=== PATIENT | female | born 1950 | race Caucasian/White ===

== ENCOUNTER → 2016-06-25 | Outpatient (REF) | payer MEDICARE ==
[~2016-06-25] MED LIST: ALPR0.5T3 PO; ATOR1TAB21 PO; ENSU1LIQ PO; FISH1000 PO; IBUP600T26 PO; LORT5TAB PO; PANT40TA2 PO; PROP40TA PO; TYLE1TAB5 AD; VITA200016 PO
== END ==
LOC: M LAB REF 12:30
PROVIDERS: ATTEND Internal Medicine Medical Oncology
DX: C18.9 Malignant neoplasm of colon, unspecified (principal)

== ENCOUNTER → 2016-07-02 | Outpatient (CLI) | payer MEDICARE ==
[~2016-07-02] MED LIST changes: +GASTROGRAFIN SOLUTION 30ML (Q9963) As Ordered ONE; +ISOVUE-370 76% 100ML VIAL (Q9967) As Ordered ONE
--- NOTE | 2016-07-02 16:33 | REP ---
CT of the abdomen and pelvis for colon carcinoma. A comparison is 05/21/2015. Scanning is initially performed through the liver without IV contrast. This is followed by IV contrast enhanced scanning from the diaphragms to the pubic symphysis. Bowel contrast is used on both phases of the study. The visualized lower lung pradhan demonstrate minor discoid atelectasis versus scarring in the deep posterior sulci bilaterally, unchanged. The hepatic parenchyma is homogeneous on both phases of the study. No hepatic metastases are identified. The gallbladder, pancreas and spleen are unremarkable and unchanged. The adrenals and kidneys are unremarkable and unchanged. Abdominal aorta is unremarkable. There are occasional periaortic and normal size retroperitoneal nodes, not significantly changed. There is no bowel distension. There is an enterocolostomy in the ascending colon as previously. No nodularity or masses are identified along the suture line. There is no mesenteric adenopathy or ascites. Pelvis: The the patient has a hysterectomy. Vaginal cuff and adnexa are unremarkable. The bladder is unremarkable. There is diverticulosis without diverticulitis of the descending colon and sigmoid colon. There are no lytic, blastic or destructive skeletal changes. There is degenerative disc disease at L5 S1, unchanged. Impression: There is no evidence of adenopathy, ascites, metastatic disease. No change from the prior study. There is descending colon diverticulosis without diverticulitis. Signed by Huy Garcia MD 07/02/2016 04:25 P
== END ==
LOC: M RAD 12:38
PROVIDERS: ATTEND Internal Medicine Medical Oncology
DX: K57.30 Diverticulosis of large intestine without perforation or abscess without bleeding (principal); R10.30 Lower abdominal pain, unspecified; R11.0 Nausea
CPT/HCPCS: 74178; Q9963; Q9967

== ENCOUNTER → 2016-09-11 | Outpatient (CLI) | payer MEDICARE ==
[~2016-09-11] MED LIST changes: -GASTROGRAFIN SOLUTION 30ML (Q9963) As Ordered ONE; -ISOVUE-370 76% 100ML VIAL (Q9967) As Ordered ONE
--- NOTE | 2016-09-11 14:10 | REPMRS ---
Patient History The patient states she has not had a clinical breast exam in over a year. Patient is postmenopausal, has history of colorectal cancer at age 64, had previous chemotherapy at age 64, has history of other cancer at age 57, and is nulliparous. No known family history of cancer. Digital Woman Screen Mammo: September 11, 2016 - Exam #: [id number] Bilateral CC and MLO view(s) were taken. Technologist: Alexandria Fitch, Technologist Prior study comparison: September 05, 2015, digital woman screen mammo performed at [facility]. September 18, 2014, digital woman screen mammo performed at [facility]. FINDINGS: There are scattered fibroglandular densities. There has been no change in the appearance of the mammogram from the prior studies. There is a mild amount of residual fibroglandular tissue which is fairly symmetric. There is no interval development of dominant mass, architectural distortion, or clustered microcalcification suggestive of malignancy. ASSESSMENT: BI-RADS/ACR category 1 mammogram. Negative. Recommendation Routine screening mammogram in 1 year (for women over age 40). This mammogram was interpreted with the aid of an FDA-approved computer-aided dectection system. Electronically Signed By: Huy Yusuf MD 09/11/16 2503
== END ==
LOC: M WHC 12:54
PROVIDERS: ATTEND Family Medicine
DX: Z12.31 Encounter for screening mammogram for malignant neoplasm of breast (principal); Z78.0 Asymptomatic menopausal state

== ENCOUNTER → 2017-01-08 | Outpatient (REF) | payer MEDICARE ==
[~2017-01-08] MED LIST changes: +IBUP-1022 PO; -IBUP600T26 PO
== END ==
LOC: M LAB REF 12:24
PROVIDERS: ATTEND Internal Medicine Medical Oncology
DX: C18.0 Malignant neoplasm of cecum (principal)

== ENCOUNTER → 2017-02-11 | Outpatient (CLI) | payer MEDICARE ==
[2017-02-11 10:33] LABS: FREE T4 1.18 NG/DL (0.76-1.46)
== END ==
LOC: M WUC 08:26
PROVIDERS: ATTEND Family Medicine
DX: D75.89 Other specified diseases of blood and blood-forming organs (principal); E78.5 Hyperlipidemia, unspecified

== ENCOUNTER → 2017-03-03 | Outpatient (REF) | payer MEDICARE ==
[~2017-03-03] MED LIST changes: +LORA10CA PO
== END ==
LOC: M LAB REF 10:39
PROVIDERS: ATTEND Internal Medicine Gastroenterology
DX: R19.7 Diarrhea, unspecified (principal)

== ENCOUNTER 2017-03-06 09:24 | Day surgery (SDC) | payer MEDICARE ==
[~2017-03-06] VITALS: Ht 154.9 cm; Wt 53.5 kg
[2017-03-06] MEDS ORDERED: NS 1,000 ML IV ONE (10:15)
[2017-03-06] MEDS ORDERED: fentaNYL 100 MCG/2 ML INJECTION (J3010) As Ordered ONE (10:55)
[2017-03-06] MEDS ORDERED: PROPOFOL 200 MG/20 ML VIAL As Ordered ONE ×2 (10:57→12:20)
[2017-03-06] MEDS ORDERED: LIDOCAINE 2% INJ 100 MG/5 ML SDV (FOR ANES.) As Ordered ONE (10:57)
--- NOTE | 2017-03-06 12:43 | ROOR ---
Patient Name: Yarelis Douglas Procedure Date: 03/06/2017 11:23 AM Date of : 1950 Age: 67 Room: [facility] Gender: Female Note Status: Finalized Procedure: Colonoscopy Indications: High risk colon cancer surveillance: Personal history of colon cancer Providers: Saurav Soliman MD Referring MD: Yumiko Guthrie MD Requesting Provider: Medicines: Monitored Anesthesia Care Complications: No immediate complications. Procedure: Pre-Anesthesia Assessment: - Prior to the procedure, a History and Physical was performed, and patient medications and allergies were reviewed. The patient is competent. The risks and benefits of the procedure and the sedation options and risks were discussed with the patient. All questions were answered and informed consent was obtained. Patient identification and proposed procedure were verified by the physician, the nurse and the anesthesiologist in the procedure room. Mental Status Examination: alert and oriented. Airway Examination: normal oropharyngeal airway and neck mobility. Respiratory Examination: clear to auscultation. CV Examination: normal. Prophylactic Antibiotics: The patient does not require prophylactic antibiotics. Prior Anticoagulants: The patient has taken no previous anticoagulant or antiplatelet agents. ASA Grade Assessment: II - A patient with mild systemic disease. After reviewing the risks and benefits, the patient was deemed in satisfactory condition to undergo the procedure. The anesthesia plan was to use monitored anesthesia care (MAC). Immediately prior to administration of medications, the patient was re-assessed for adequacy to receive sedatives. The heart rate, respiratory rate, oxygen saturations, blood pressure, adequacy of pulmonary ventilation, and response to care were monitored throughout the procedure. The physical status of the patient was re-assessed after the procedure. The Colonoscope was introduced through the anus and advanced to the terminal ileum, with identification of the appendiceal orifice and IC valve. The colonoscopy was performed without difficulty. The patient tolerated the procedure well. The quality of the bowel preparation was adequate to identify polyps 6 mm and larger in size and fair. The terminal ileum, ileocecal valve, appendiceal orifice, and rectum were photographed. Scope insertion time was 6 minutes. Scope withdrawal time was 10 minutes. The total duration of the procedure was 18 minutes. Findings: The perianal and digital rectal examinations were normal. The kati-terminal ileum appeared normal. There was evidence of a prior functional end-to-end ileo-colonic anastomosis in the ascending colon. This was patent and was characterized by healthy appearing mucosa. The anastomosis was traversed. A 10 mm polyp was found in the descending colon. The polyp was sessile. The polyp was removed with a cold biopsy forceps. Resection and retrieval were complete. To close a defect after polypectomy, one hemostatic clip was successfully placed. There was no bleeding at the end of the procedure. Multiple small and large-mouthed diverticula were found in the sigmoid colon. There was narrowing of the colon in association with the diverticular opening. There was evidence of diverticular spasm. There was no evidence of diverticular bleeding. Non-bleeding external and internal hemorrhoids were found during retroflexion. The hemorrhoids were medium-sized. Impression: - Preparation of the colon was fair. - The examined portion of the ileum was normal. - Patent functional end-to-end ileo-colonic anastomosis, characterized by healthy appearing mucosa. - One 10 mm polyp in the descending colon, removed with a cold biopsy forceps. Resected and retrieved. Clip was placed. - Severe diverticulosis in the sigmoid colon. There was narrowing of the colon in association with the diverticular opening. There was evidence of diverticular spasm. There was no evidence of diverticular bleeding. - Non-bleeding external and internal hemorrhoids. Recommendation: - Patient has a contact number available for emergencies. The signs and symptoms of potential delayed complications were discussed with the patient. Return to normal activities tomorrow. Written discharge instructions were provided to the patient. - High fiber diet. - Continue present medications. - Await pathology results. - Repeat colonoscopy in 3 years for surveillance based on pathology results and for surveillance based on personal history of colon cancer. - Return to GI clinic as previously scheduled. Please call [phone] to make follow up appointment in 2 weeks, - Return to primary care physician. Saurav Soliman MD Saurav Soliman MD 03/06/2017 12:42:53 PM This report has been signed electronically. Number of Addenda: 0 Note Initiated On: 03/06/2017 11:23 AM Estimated Blood Loss: Estimated blood loss was minimal.
[2017-03-06 13:10] VITALS: BP 144/76
--- NOTE | 2017-03-06 13:27 | ROOR ---
Patient Name: Yarelis Douglas Procedure Date: 03/06/2017 11:22 AM Date of : 1950 Age: 67 Room: [facility] Gender: Female Note Status: Finalized Procedure: Upper GI endoscopy Indications: Functional Dyspepsia, Weight loss Providers: Saurav Soliman MD Referring MD: Yumiko Guthrie MD Requesting Provider: Medicines: Monitored Anesthesia Care Complications: No immediate complications. Procedure: Pre-Anesthesia Assessment: - Prior to the procedure, a History and Physical was performed, and patient medications and allergies were reviewed. The patient is competent. The risks and benefits of the procedure and the sedation options and risks were discussed with the patient. All questions were answered and informed consent was obtained. Patient identification and proposed procedure were verified by the physician, the nurse and the anesthesiologist in the procedure room. Mental Status Examination: alert and oriented. Airway Examination: normal oropharyngeal airway and neck mobility. Respiratory Examination: clear to auscultation. CV Examination: normal. Prophylactic Antibiotics: The patient does not require prophylactic antibiotics. Prior Anticoagulants: The patient has taken no previous anticoagulant or antiplatelet agents. ASA Grade Assessment: II - A patient with mild systemic disease. After reviewing the risks and benefits, the patient was deemed in satisfactory condition to undergo the procedure. The anesthesia plan was to use monitored anesthesia care (MAC). Immediately prior to administration of medications, the patient was re-assessed for adequacy to receive sedatives. The heart rate, respiratory rate, oxygen saturations, blood pressure, adequacy of pulmonary ventilation, and response to care were monitored throughout the procedure. The physical status of the patient was re-assessed after the procedure. The Endoscope was introduced through the mouth, and advanced to the second part of duodenum. The upper GI endoscopy was accomplished without difficulty. The patient tolerated the procedure well. Findings: The Z-line was irregular and was found 38 cm from the incisors. Two biopsies were obtained with cold forceps for histology in the middle third of the esophagus. Verification of patient identification for the specimen was done by the physician and nurse using the patient's name, date and medical record number. Estimated blood loss was minimal. Multiple dispersed, 7 mm non-bleeding erosions were found in the gastric antrum. There were no stigmata of recent bleeding. Biopsies were taken with a cold forceps for Helicobacter pylori testing. The duodenal bulb and second portion of the duodenum were normal. Biopsies for histology were taken with a cold forceps for evaluation of celiac disease. Impression: - Z-line irregular, 38 cm from the incisors. - Non-bleeding erosive gastropathy. Biopsied. - Normal duodenal bulb and second portion of the duodenum. Biopsied. - Biopsies performed in the middle third of the esophagus. Recommendation: - Patient has a contact number available for emergencies. The signs and symptoms of potential delayed complications were discussed with the patient. Return to normal activities tomorrow. Written discharge instructions were provided to the patient. - Resume previous diet. - Continue present medications. - Await pathology results. - Return to GI clinic as previously scheduled. Please call Gi clinic at for follow up appointment. - Return to primary care physician. Saurav Soliman MD Saurav Soliman MD 03/06/2017 1:27:34 PM This report has been signed electronically. Number of Addenda: 0 Note Initiated On: 03/06/2017 11:22 AM Estimated Blood Loss: Estimated blood loss was minimal.
== END 2017-03-06 13:39 | disposition home or self-care (01) ==
LOC: M OPP 09:24
PROVIDERS: ATTEND Internal Medicine Gastroenterology
DX: Z12.11 Encounter for screening for malignant neoplasm of colon (principal); Z85.038 Personal history of other malignant neoplasm of large intestine; D12.4 Benign neoplasm of descending colon; K57.30 Diverticulosis of large intestine without perforation or abscess without bleeding; Z98.0 Intestinal bypass and anastomosis status; K64.8 Other hemorrhoids; R63.4 Abnormal weight loss; K30 Functional dyspepsia; K31.89 Other diseases of stomach and duodenum; K22.8 Other specified diseases of esophagus; R10.9 Unspecified abdominal pain; R13.10 Dysphagia, unspecified; R19.4 Change in bowel habit; Z85.828 Personal history of other malignant neoplasm of skin; I10 Essential (primary) hypertension; E55.9 Vitamin D deficiency, unspecified; R00.9 Unspecified abnormalities of heart beat; K21.9 Gastro-esophageal reflux disease without esophagitis; F41.9 Anxiety disorder, unspecified; E78.00 Pure hypercholesterolemia, unspecified; Z79.899 Other long term (current) drug therapy; Z88.8 Allergy status to other drugs, medicaments and biological substances; Z88.0 Allergy status to penicillin
CPT/HCPCS: 43239; 45380; 88305; J3010

== ENCOUNTER → 2017-03-16 | Outpatient (CLI) | payer MEDICARE ==
[2017-03-16 13:25] LABS: CREATININE FOR GFR 1.05 MG/DL (0.55-1.02); GLOMERULAR FILTRATION RATE 55.8 (>45)
== END ==
LOC: M LAB 12:02
PROVIDERS: ATTEND Internal Medicine Gastroenterology
DX: R10.13 Epigastric pain (principal)

== ENCOUNTER → 2017-03-19 | Outpatient (CLI) | payer MEDICARE ==
[~2017-03-19] MED LIST changes: +GASTROGRAFIN SOLUTION 30ML (Q9963) As Ordered ONE; +ISOVUE-370 76% 100ML VIAL (Q9967) As Ordered ONE
--- NOTE | 2017-03-19 14:51 | REP ---
CT ABDOMEN PELVIS WITHOUT AND WITH IV CONTRAST: With oral contrast. HISTORY: Epigastric pain and weight loss. Pancreatic protocol. CT CONTRAST DOSE: 100 mL of Isovue 370 is given intravenously. Comparison CT study July [address] FINDINGS: Preliminary digital doctor of nursing practice radiograph is noncontributory. The lung bases show mild linear fibrosis bilaterally. There are granulomatous calcifications in the left base. The liver and the spleen are normal in size homogeneous in texture. There is a granulomatous calcification in the medial aspect of the spleen again noted. The gallbladder is unremarkable. No adrenal lesion is seen on either side. No pancreatic mass or cyst is seen. 2 mm pancreatic duct is observed, which is felt to be normal in size. There is a large air-filled duodenal diverticulum adjacent to the head of the pancreas arising from the duodenum at the junction of the second and third portion. There is no evidence of peripancreatic or retroperitoneal adenopathy. The kidneys enhance symmetrically and are morphologically intact. Small and large intestinal bowel loops are otherwise unremarkable. No abdominal wall defect is seen. There is left colonic diverticulosis without CT evidence of diverticulitis. Uterus is surgically absent. Urinary bladder is unremarkable. There are sutures medial to the cecum post appendectomy. IMPRESSION: No pancreatic lesions seen. Status post prior appendectomy. Large duodenal diverticulum noted incidentally. Signed by Gilles Crow MD 03/19/2017 04:01 P
== END ==
LOC: M RAD 11:56
PROVIDERS: ATTEND Internal Medicine Gastroenterology
DX: R10.13 Epigastric pain (principal)
CPT/HCPCS: 74178; Q9963; Q9967

== ENCOUNTER → 2017-07-09 | Outpatient (REF) | payer MEDICARE ==
[2017-07-10 08:50] LABS: CARCINOEMBRYONIC ANTIGEN 3.2 NG/ML (<2.5)
== END ==
LOC: M LAB REF 13:55
DX: C18.9 Malignant neoplasm of colon, unspecified (principal)
CPT/HCPCS: 82378

== ENCOUNTER → 2017-07-10 | Outpatient (CLI) | payer MEDICARE ==
[~2017-07-10] MED LIST changes: -ALPR0.5T3 PO; -ATOR1TAB21 PO; -ENSU1LIQ PO; -FISH1000 PO; -GASTROGRAFIN SOLUTION 30ML (Q9963) As Ordered ONE; -IBUP-1022 PO; +ISOVUE-370 76% 100ML VIAL (Q9967) As Ordered; -ISOVUE-370 76% 100ML VIAL (Q9967) As Ordered ONE; -LORA10CA PO; -LORT5TAB PO; -PANT40TA2 PO; -PROP40TA PO; -TYLE1TAB5 AD; -VITA200016 PO
== END ==
LOC: M RAD 12:47
DX: C18.9 Malignant neoplasm of colon, unspecified (principal); R07.89 Other chest pain
CPT/HCPCS: Q9967

== ENCOUNTER → 2017-07-13 | Outpatient (CLI) | payer MEDICARE ==
[~2017-07-13] MED LIST changes: -ISOVUE-370 76% 100ML VIAL (Q9967) As Ordered; +PROHANCE 279.3MG/ML 5ML VIAL (A9576) As Ordered
== END ==
LOC: M RAD 16:14
DX: R51 Headache (principal); Z85.038 Personal history of other malignant neoplasm of large intestine
CPT/HCPCS: A9576

== ENCOUNTER → 2017-09-14 | Outpatient (CLI) | payer MEDICARE | LOC: M WHC 08:38 | DX: Z12.31 Encounter for screening mammogram for malignant neoplasm of breast (principal) | CPT/HCPCS: 77067 ==

== ENCOUNTER → 2017-10-27 | Outpatient (REF) | payer MEDICARE ==
[2017-10-27 12:58] LABS: FERRITIN 10 NG/ML (8-252); IRON (FE) 66 UG/DL (50-170); PERCENT SATURATION 17.6 % (13.2-45.0); TOTAL IRON BINDING CAPACITY 374 UG/DL (250-450)
== END ==
LOC: M SFHCPLAZ 07:50
DX: G25.81 Restless legs syndrome (principal); R03.0 Elevated blood-pressure reading, without diagnosis of hypertension; F32.1 Major depressive disorder, single episode, moderate
CPT/HCPCS: 83550

== ENCOUNTER → 2018-01-11 | Outpatient (CLI) | payer MEDICARE | LOC: M PAIN 10:15 | DX: M47.812 Spondylosis without myelopathy or radiculopathy, cervical region (principal); M48.02 Spinal stenosis, cervical region; G43.909 Migraine, unspecified, not intractable, without status migrainosus; K21.9 Gastro-esophageal reflux disease without esophagitis; E78.00 Pure hypercholesterolemia, unspecified; F41.9 Anxiety disorder, unspecified; L71.9 Rosacea, unspecified; Z79.82 Long term (current) use of aspirin; Z79.899 Other long term (current) drug therapy; Z88.0 Allergy status to penicillin; Z88.8 Allergy status to other drugs, medicaments and biological substances; Z91.038 Other insect allergy status; Z86.79 Personal history of other diseases of the circulatory system; Z87.891 Personal history of nicotine dependence | CPT/HCPCS: G0463 ==

== ENCOUNTER → 2018-02-08 | Outpatient (CLI) | payer MEDICARE ==
[~2018-02-08] MED LIST changes: +BUPIVACAINE HCL 0.25% 30 ML VIAL As Ordered; +ISOVUE-M 300 61% 15ML VIAL (Q9967) As Ordered; +LIDOCAINE 1% SDV INJ 30 ML VIAL As Ordered; -PROHANCE 279.3MG/ML 5ML VIAL (A9576) As Ordered; +TRIAMCINOLONE ACETONIDE SUSP 40 MG/ML VIAL (J3301) As Ordered; +diazePAM 5 MG TAB As Ordered; +oxyCODONE 5MG TAB As Ordered
== END ==
LOC: M PAIN 14:45
DX: G89.29 Other chronic pain (principal); M47.812 Spondylosis without myelopathy or radiculopathy, cervical region; G43.909 Migraine, unspecified, not intractable, without status migrainosus; K21.9 Gastro-esophageal reflux disease without esophagitis; F41.9 Anxiety disorder, unspecified; J30.89 Other allergic rhinitis; L71.9 Rosacea, unspecified; H93.13 Tinnitus, bilateral; E78.00 Pure hypercholesterolemia, unspecified; Z79.82 Long term (current) use of aspirin; Z79.899 Other long term (current) drug therapy; Z88.0 Allergy status to penicillin; Z88.8 Allergy status to other drugs, medicaments and biological substances; Z91.038 Other insect allergy status; Z87.891 Personal history of nicotine dependence; Z86.79 Personal history of other diseases of the circulatory system
CPT/HCPCS: J3301

== ENCOUNTER → 2018-03-01 | Outpatient (CLI) | payer MEDICARE | LOC: M PAIN 13:15 | DX: M60.9 Myositis, unspecified (principal); G43.909 Migraine, unspecified, not intractable, without status migrainosus; E78.00 Pure hypercholesterolemia, unspecified; K21.9 Gastro-esophageal reflux disease without esophagitis; F41.9 Anxiety disorder, unspecified; J30.89 Other allergic rhinitis; L71.9 Rosacea, unspecified; D32.0 Benign neoplasm of cerebral meninges; Z79.82 Long term (current) use of aspirin; Z79.899 Other long term (current) drug therapy; Z88.0 Allergy status to penicillin; Z88.8 Allergy status to other drugs, medicaments and biological substances; Z91.038 Other insect allergy status; Z85.038 Personal history of other malignant neoplasm of large intestine; Z86.79 Personal history of other diseases of the circulatory system; Z87.891 Personal history of nicotine dependence | CPT/HCPCS: G0463 ==

== ENCOUNTER → 2018-04-01 | Outpatient (CLI) | payer MEDICARE ==
[~2018-04-01] MED LIST changes: +ACE65ERTAB PO; +ALPR0.5T3 PO; +ATOR1TAB21 PO; +BUPIVACAINE HCL 0.25% 10 ML VIAL As Ordered ONE; -BUPIVACAINE HCL 0.25% 30 ML VIAL As Ordered; +BUPIVACAINE HCL 0.25% 30 ML VIAL As Ordered ONE; +ENSU1LIQ PO; +FISH1000 PO; +IBUP-1022 PO; -ISOVUE-M 300 61% 15ML VIAL (Q9967) As Ordered; -LIDOCAINE 1% SDV INJ 30 ML VIAL As Ordered; +LORA10CA PO; +LORT5TAB PO; +PANT40TA3 PO; +PROP40TA62 PO; -TRIAMCINOLONE ACETONIDE SUSP 40 MG/ML VIAL (J3301) As Ordered; +TRIAMCINOLONE ACETONIDE SUSP 40 MG/ML VIAL (J3301) As Ordered ONE; +TYLE1TAB5 AD; +VITA200016 PO; -diazePAM 5 MG TAB As Ordered; +diazePAM 5 MG TAB As Ordered ONE; -oxyCODONE 5MG TAB As Ordered; +oxyCODONE 5MG TAB As Ordered ONE
--- NOTE | 2018-04-17 23:33 | ECWPNPC ---
PATIENT NAME: NEEL MCARTHUR : 1950 GENDER: FEMALE VISIT DATE: 04/01/2018 DISCHARGE DATE: 04/01/18 1731 VISIT LOCKED DATE TIME: PHYSICIAN: RUBIN SNELL MD RESOURCE: RUBIN SNELL MD REASON FOR APPOINTMENT 1. TPI HISTORY OF PRESENT ILLNESS HISTORY OF PRESENT ILLNESS: PAIN THE PATIENT DESCRIBES THE PAIN... FALL RISK SCREENING: SCREENING :NO FALLS IN THE PAST YEAR CURRENT MEDICATIONS TAKING LORATADINE 10 MG TABLET 1 TABLET ORALLY ONCE DAILY NEEDED, NOTES: NONE RECENT TAKING ASPIRIN 81 MG TABLET 1 TABLET ORALLY ONCE A DAY, NOTES: 03/31 2099 TAKING LIPITOR 20 MG TABLET 1 TABLET ORALLY ONCE A DAY, NOTES: 03/31 2099 TAKING TYLENOL ARTHRITIS PAIN 1 TAB DAILY NEEDED, NOTES: NONE RECENT TAKING PROTONIX 40 MG TABLET DELAYED RELEASE 1 TAB ORALLY TWICE DAILY, NOTES: 04/01 0600 TAKING XANAX 0.5 MG TABLET 1 TABLET ORALLY TWICE A DAY NEEDED; MDD #2, NOTES: 2 WEEKS AGO TAKING BENADRYL ALLERGY 25 MG CAPSULE 2 CAPSULE NEEDED ORALLY EVERY 8 HRS, NOTES: NONE RECENT MEDICATION LIST REVIEWED AND RECONCILED WITH THE PATIENT PAST MEDICAL HISTORY HYPERCHOLESTEROLEMIA MIGRAINES TINNITUS GERD SVT PRIOR TO ABLATION ANXIETY H/O STAGE 3 COLON ADENOCARCINOMA IN REMISSION VITAMIN D DEFICIENCY ENVIROMENTAL ALLERGIES BASAL CELL SKIN CANCER 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 MALDONADO 09/2009 HERNIA REPAIR AND COLON RESECTION (DR. CONDON) 2014 EGD - NONBLEEDING EROSIVE GASTROPATHY (DR. GARCIA) 02/2017 COLONOSCOPY - 1 HYPERPLASTIC POLYP REMOVED; REPEAT IN 3 YEARS (DR. GARCIA) 02/2017 FAMILY HISTORY FATHER: 73 YRS, HEART DISEASE/CHF,NM,FIRST NM IN HIS 40'S, DIAGNOSED WITH HEART DISEASE MOTHER: 52 YRS, HEART DISEASE/STROKE, DIAGNOSED WITH STROKE SIBLINGS: , BROTHER HEART DISEASE BROTHER MM, DIAGNOSED WITH HEART DISEASE PATERNAL GRAND FATHER: , STOMACH CANCER 1 BROTHER(S) , 1 SISTER(S) - HEALTHY. BROTHER OF NM. SOCIAL HISTORY GENERAL: TOBACCO USE ARE YOU A:FORMER SMOKER HOW LONG HAS IT BEEN SINCE YOU LAST SMOKED?> 10 YEARS ALCOHOL SCREENING DID YOU HAVE A DRINK CONTAINING ALCOHOL IN THE PAST YEAR?NO POINTS0 INTERPRETATIONNEGATIVE RECREATIONAL DRUG USE DRUG USE?NO CAFFEINE CAFFEINE USE?YES HOW OFTEN AND HOW MUCH? 4 CUPS COFFEE PER DAY SEXUAL HX HAD SEX IN THE LAST 12 MONTHS (VAGINAL, ORAL, OR ANAL)?NO HAVE YOU EVER HAD AN STD?NO HIV / HEP-C SCREENING HIV TEST OFFERED TO PATIENT:YES DATE OFFERED:03/21/2016 TEST ACCEPTED:NO REASON:PATIENT DECLINED HEP-C TEST OFFERED TO PATIENT:YES DATE OFFERED:03/21/2016 TEST ACCEPTED:NO REASON:PATIENT DECLINED CATHOLIC [id number] NONE LANGUAGE LANGUAGES SPOKEN:GRENADIAN EDUCATION LEVEL OF EDUCATION:FINISHED HIGH SCHOOL LEARNING BARRIERS / SPECIAL NEEDS CHANGE FROM LAST VISIT?NO BARRIERS TO LEARNING?NO HEARING IMPAIRED?NO VISION IMPAIRED?YES :CORRECTIVE LENSES PATIENT HAS LENSES IN EYES D/T CATARACTS COGNITIVELY IMPAIRED?NO READINESS TO LEARN?YES LEARNING PREFERENCES?NO LEARNING CAPABILITIES PRESENT?YES EMOTIONAL BARRIERS?NO SPECIAL DEVICES?NO TIMBER SIZER OPERATOR NEEDED?NO DOMESTIC VIOLENCE NONE, NONE. OCCUPATION: RETIRED , RETIRED . DIET: LOW FAT, LOW CHOLESTEROL, LOW FAT, LOW CHOLESTEROL. EXERCISE: DAILY, TREADMILL 5 DAYS/DAY WEIGHT LIFTING AT GYM, DAILY, TREADMILL 5 DAYS/DAY WEIGHT LIFTING AT GYM. MARITAL STATUS: SINGLE, SINGLE. OTHERS AT HOME: NONE, NONE. PAIN CLINIC PFS, CLERGY, PUBLIC HEALTH REFERRALS PFS REFERRAL NEEDED?NO CLERGY REFERRAL NEEDED?NO PUBLIC HEALTH REFERRAL NEEDED?NO WAS THE PROVIDER NOTIFIED OF ANY PERTINENT INFO?NO N/A HAS THE PATIENT BEEN EDUCATED REGARDING HIS/HER PLAN OF CARE?YES HAS THE PATIENT BEEN EDUCATED REGARDING PAIN, THE RISK FOR PAIN, THE IMPORTANCE OF EFFECTIVE PAIN MANAGEMENT, AND THE PAIN ASSESSMENT PROCESS?YES ADVANCE DIRECTIVE ADVANCE DIRECTIVE DISCUSSED WITH PATIENT:YES ROSARIO LINDSAY , [address] [place] MOREIRA [phone] 04/01/18 REVIEWED WITH PT. AD. HOSPITALIZATION/MAJOR DIAGNOSTIC PROCEDURE R/T SURGERIES REVIEW OF SYSTEMS REVIEWED BY: PROVIDER: . CONSTITUTIONAL: ANY CHANGE IN YOUR MEDICAL CONDITION? NO . CHILLS NO . FEVER NO . INFECTION: DO YOU HAVE NEW INFECTIONS? NO . DO YOU HAVE HISTORY OF MRSA? NO . MUSCULOSKELETAL: ANY NEW PATTERNS OF PAIN OR NUMBNESS? NO . GASTROENTEROLOGY: ANY NEW CHANGE IN BOWEL CONTROL? NO . GENITOURINARY: ANY NEW CHANGE IN BLADDER CONTROL? NO . IS THERE A CHANCE YOU COULD BE ? NO . HEMATOLOGY/LYMPH: DO YOU TAKE ANY BLOOD THINNERS? (FOR EXAMPLE- COUMADIN, PLAVIX, AGGRENOX, PLATEL, PRADAXA, OR XARELTO) NO . WHEN WAS YOUR LAST DOSE? DATE: TIME: . NEUROLOGY: HAVE YOU FALLEN IN THE PAST 6 MONTHS? NO . ANY NEW EXTREMITY NUMBNESS OR WEAKNESS? NO . CARDIOLOGY: DO YOU HAVE A PACEMAKER OR DEFIBRILLATOR? NO . RESPIRATORY: HAVE YOU BEEN SICK IN THE PAST WEEK? NO . FEVER NO . FLU LIKE SYMPTOMS? NO . COUGH NO . INTEGUMENTARY: DO YOU HAVE ANY RASHES OR OPEN SORES? NO . ALLERGIC/IMMUNO: ARE YOU ALLERGIC TO SHELLFISH OR IV DYE? NO . ANY NEW ALLERGIES? NO . PSYCHIATRIC: DO YOU HAVE THOUGHTS OF HURTING YOURSELF OR SOMEONE ELSE? NO . ARE YOU ABUSED, NEGLECTED, OR IN AN UNSAFE ENVIRONMENT? NO . ENDOCRINOLOGY: ARE YOU DIABETIC? NO . OTHER: DO YOU NEED ANY PRESCRIPTIONS? NO . IF YES, PLEASE LIST: ____ . ANY NEW PROBLEMS WITH YOUR MEDICATIONS? NO . WHEN DID YOU LAST EAT? 04/01 0800 . WHEN DID YOU LAST DRINK? 04/01 0900 . WHAT DID YOU LAST DRINK? WATER . NAME OF PERSON DRIVING YOU HOME? AUSTIN MOREIRA . DO YOU HAVE ANY OTHER QUESTIONS OR CONCERNS NO . VITAL SIGNS WT 125.0 LBS, HT 61 IN, BMI 23.62 INDEX, BP 135/84 MM HG, HR 95 /MIN, RR 18 /MIN, TEMP 97.4 F, OXYGEN SAT % 100%, SAFE IN ENV? (Y/N) Y, NA INITIALS AW 1448, REVIEWED BY: AD. ASSESSMENTS MYALGIA, OTHER SITE - M79.18 (PRIMARY) PROCEDURES PN TRIGGER POINT INJECTION WITH STEROIDS PRE PROCEDURE DIAGNOSIS 1. MYALGIA 2. PAIN AT LEFT THORACIC AREA POST PROCEDURE DIAGNOSIS 1. MYALGIA 2. PAIN AT LEFT THORACIC AREA PROCEDURE TRIGGER POINT INJECTION AT LEFT THORACIC AREA SURGEON DR. RUBIN SNELL INSTRUCTOR PHYSICAL EDUCATION NONE ANESTHESIA LOCAL PRE PROCEDURE NOTE THE PATIENT HAS A HISTORY OF CHRONIC PAIN AT THE LEFT THORACIC AREA. I EVALUATE THE PATIENT AND REVIEWED THE CHART. THERE IS EVIDENCE OF BANDS OF TISSUE WITH RESTRICTION OF MOVEMENT AND PRESENCE OF TRIGGER POINT AT THE AFFECTED AREA. I WENT OVER THE RISKS, ALTERNATIVES, AND BENEFITS ASSOCIATED WITH THIS PROCEDURE. THE PATIENT WOULD LIKE TO PROCEED AND GIVE CONSENT TO PERFORMED THE PROCEDURE. THE PATIENT DENIES UNEXPLAINABLE WEIGHT LOSS, FEVER, CHILLS, OR NEW CHANGES IN URINARY OR BOWEL CONTROL DESCRIPTION OF PROCEDURE THE PATIENT WAS BROUGHT TO THE PROCEDURE ROOM AND PLACED IN THE SITTING POSITION. THE AREA WAS CLEANED WITH ALCOHOL. THE PROCEDURE WAS DONE USING ASEPTIC STERILE TECHNIQUE. I CHECKED LATERALITY AND THE LEVEL WHERE THE PROCEDURE WAS GOING TO BE PERFORMED WITH THE PATIENT AND THE SUPPORTING STAFF AT THE MOMENT OF THE TIME OUT IN THE PROCEDURE ROOM. USING A 25-GAUGE NEEDLE, TRIGGER POINTS WERE INJECTED AT THE LEFT THORACIC AREA WITH A TOTAL OF 40 ML OF BUPIVACAINE 0.25% AND KENALOG 40 MG. THERE WAS NO EVIDENCE OF BLOOD, PARESTHESIA OR CEREBROSPINAL FLUID DURING THE PROCEDURE. THE PATIENT WAS SENT TO THE RECOVERY ROOM. THE PATIENT WAS MOVING THE EXTREMITIES AND DOING WELL. THERE WAS NO COMPLICATION DURING THE PROCEDURE POST PROCEDURE NOTE THE PATIENT WILL BE SEEN IN A FOLLOW UP IN THE NEXT FEW WEEKS. INSTRUCTIONS WERE GIVEN, QUESTIONS WERE ANSWERED, AND THE PATIENT EXPRESSED UNDERSTANDING AND AGREES WITH THE PLAN. I, TOMMY YIP, DOCUMENTED THE ABOVE INFORMATION ACTING A SCRIBE FOR DR. SNELL. I HAVE REVIEWED THE ABOVE DOCUMENT, WRITTEN BY TOMMY COLINDRES AND I VERIFY THAT IT IS ACCURATE. PROCEDURE CODES 27206 INJ TRIGGER POINT / [facility] DISPOSITION & COMMUNICATION FOLLOW UP 3 WEEKS ELECTRONICALLY SIGNED BY RUBIN SNELL MD, MD ON 04/17/2018 AT 09:02 PM EST DISCLAIMER : THIS IS A VISIT SUMMARY EXTRACTED FROM THE [facility] CHART. IT IS NOT A COPY OF THE [facility] PROGRESS NOTE. MTDD
== END ==
LOC: M PAIN 15:00
PROVIDERS: ATTEND Anesthesiology
DX: M79.18 Myalgia, other site (principal); M54.6 Pain in thoracic spine; G43.909 Migraine, unspecified, not intractable, without status migrainosus; K21.9 Gastro-esophageal reflux disease without esophagitis; F41.9 Anxiety disorder, unspecified; E78.00 Pure hypercholesterolemia, unspecified; L71.9 Rosacea, unspecified; J30.89 Other allergic rhinitis; D32.9 Benign neoplasm of meninges, unspecified; Z79.82 Long term (current) use of aspirin; Z79.899 Other long term (current) drug therapy; Z88.0 Allergy status to penicillin; Z88.8 Allergy status to other drugs, medicaments and biological substances; Z91.038 Other insect allergy status; Z87.891 Personal history of nicotine dependence; Z85.038 Personal history of other malignant neoplasm of large intestine; Z86.79 Personal history of other diseases of the circulatory system
CPT/HCPCS: 20552; J3301

== ENCOUNTER → 2018-08-20 | Outpatient (REF) | payer MEDICARE ==
[~2018-08-20] MED LIST changes: -BUPIVACAINE HCL 0.25% 10 ML VIAL As Ordered ONE; -BUPIVACAINE HCL 0.25% 30 ML VIAL As Ordered ONE; -TRIAMCINOLONE ACETONIDE SUSP 40 MG/ML VIAL (J3301) As Ordered ONE; -diazePAM 5 MG TAB As Ordered ONE; -oxyCODONE 5MG TAB As Ordered ONE
[2018-08-20 12:03] LABS: HEMATOCRIT 39.6 % (36.0-47.0); HEMOGLOBIN 12.4 g/dl (12.0-15.5); MEAN CORPUSCULAR HEMOGLOBIN 31.2 pg (27.0-33.0); MEAN CORPUSCULAR HGB CONC 31.3 g/dl (32.0-36.5); MEAN CORPUSCULAR VOLUME 99.7 fl (80.0-96.0); PLATELET COUNT, AUTOMATED 147 10^3/uL (150-450); RED BLOOD COUNT 3.97 10^6/uL (4.00-5.40); WHITE BLOOD COUNT 4.2 10^3/uL (4.0-10.0)
[2018-08-20 12:17] LABS: FREE T4 1.12 NG/DL (0.76-1.46); PERCENT SATURATION 18.2 % (13.2-45.0); THYROID STIMULATING HORMONE 1.52 uIU/ML (0.358-3.740)
[2018-08-20 12:18] LABS: TOTAL 25(OH) VITAMIN D 28.8 NG/ML (30.0-100.0)
== END ==
LOC: M SFHCPLAZ 08:27
PROVIDERS: ATTEND Family Medicine
DX: R53.83 Other fatigue (principal); L65.9 Nonscarring hair loss, unspecified
CPT/HCPCS: 36415; 82306; 82607; 82728; 83550; 84439; 84443; 85027; G0463

== ENCOUNTER → 2018-09-03 | Outpatient (REF) | payer MEDICARE ==
[2018-09-03 18:16] LABS: ALBUMIN 3.7 GM/DL (3.2-5.2); BILIRUBIN,TOTAL 0.3 MG/DL (0.2-1.0); CREATININE FOR GFR 1.19 MG/DL (0.55-1.30); GLOMERULAR FILTRATION RATE 48.2 (>45); POTASSIUM SERUM 4.4 MEQ/L (3.5-5.1); TOTAL PROTEIN 6.6 GM/DL (6.4-8.2)
[2018-09-03 18:39] LABS: BASO # 0.1 10^3/uL (0.0-0.2); BASO % 1.4 % (0.0-1.0); EOS # 0.1 10^3/uL (0.0-0.50); EOS % 2.9 % (0.0-3.0); HEMATOCRIT 39.5 % (36.0-47.0); HEMOGLOBIN 12.5 g/dl (12.0-15.5); LYMPH # 0.8 10^3/uL (1.5-4.5); MEAN CORPUSCULAR HEMOGLOBIN 31.6 pg (27.0-33.0); MEAN CORPUSCULAR HGB CONC 31.6 g/dl (32.0-36.5); MONO # 0.4 10^3/uL (0.0-0.8); MONO % 8.6 % (0.0-5.0); NEUTROPHILS # 2.8 10^3/uL (1.8-7.7); NEUTROPHILS % 66.9 % (36.0-66.0); PLATELET COUNT, AUTOMATED 159 10^3/uL (150-450); RED BLOOD COUNT 3.95 10^6/uL (4.00-5.40); WHITE BLOOD COUNT 4.2 10^3/uL (4.0-10.0)
== END ==
LOC: M SFHCPLAZ 14:03
PROVIDERS: ATTEND Family Medicine
DX: R53.83 Other fatigue (principal); I95.9 Hypotension, unspecified
CPT/HCPCS: 36415; 80053; 85025; G0463

== ENCOUNTER → 2018-09-10 | Outpatient (REF) | payer MEDICARE ==
[2018-09-10 10:31] LABS: BLOOD UREA NITROGEN 9 MG/DL (7-18); CALCIUM LEVEL 8.5 MG/DL (8.8-10.2); CARBON DIOXIDE LEVEL 30 MEQ/L (21-32); CHLORIDE LEVEL 107 MEQ/L (98-107); CREATININE FOR GFR 0.97 MG/DL (0.55-1.30); GLOMERULAR FILTRATION RATE > 60.0 (>45); GLUCOSE, FASTING 85 MG/DL (70-100); POTASSIUM SERUM 4.1 MEQ/L (3.5-5.1); SODIUM LEVEL 143 MEQ/L (136-145)
== END ==
LOC: M SFHCPLAZ 08:10
PROVIDERS: ATTEND Family Medicine
DX: R94.4 Abnormal results of kidney function studies (principal)

== ENCOUNTER → 2018-10-05 | Outpatient (CLI) | payer MEDICARE ==
--- NOTE | 2018-10-05 11:41 | REPMRS ---
Patient History The patient states she has not had a clinical breast exam in over a year. No known family history of cancer. 3D TOMOSYNTHESIS WAS PERFORMED. The [facility] lifetime risk for breast cancer is 5.1%. Digital Woman Screen Mammo: October 05, 2018 - Exam #: [id number] Bilateral CC and MLO view(s) were taken. Technologist: Jaye Louis, Technologist Prior study comparison: September 14, 2017, bilateral digital woman screen mammo performed at [facility]. September 11, 2016, digital woman screen mammo performed at [facility]. FINDINGS: There are scattered fibroglandular densities. There has been no change in the appearance of the mammogram from the prior studies. There is a mild amount of residual fibroglandular tissue which is fairly symmetric. There is no interval development of dominant mass, architectural distortion, or clustered microcalcification suggestive of malignancy. Assessment: BI-RADS/ACR category 1 mammogram. Negative Mammogram. Recommendation Routine screening mammogram in 1 year (for women over age 40). This mammogram was interpreted with the aid of an FDA-approved computer-aided dectection system. Electronically Signed By: Huy Yusuf MD 10/05/18 4305
== END ==
LOC: M WHC 10:08
PROVIDERS: ATTEND Family Medicine
DX: Z12.31 Encounter for screening mammogram for malignant neoplasm of breast (principal)

== ENCOUNTER 2019-10-24 09:30 | Emergency (ER) | payer MEDICARE ==
[~2019-10-24 09:30] MED LIST changes: +PANT40TA29 PO; -PANT40TA3 PO
[2019-11-20 17:22] LABS: CALCIUM LEVEL 8.8 MG/DL (8.8-10.2); CHOLESTEROL RISK RATIO 2.323 (<5); CREATININE FOR GFR 1.03 MG/DL (0.55-1.30); GLOMERULAR FILTRATION RATE 56.7 (>45); POTASSIUM SERUM 4.3 MEQ/L (3.5-5.1)
[2019-11-27 14:11] LABS: BASO # 0.1 10^3/uL (0.0-0.2); BASO % 0.9 % (0.0-1.0); EOS % 0.5 % (0.0-3.0); HEMATOCRIT 40.2 % (36.0-47.0); HEMOGLOBIN 12.8 g/dl (12.0-15.5); LYMPH # 0.7 10^3/uL (1.5-5.0); LYMPH % 12.1 % (24.0-44.0); MEAN CORPUSCULAR HEMOGLOBIN 30.3 pg (27.0-33.0); MEAN CORPUSCULAR HGB CONC 31.8 g/dl (32.0-36.5); MONO # 0.3 10^3/uL (0.0-0.8); MONO % 5.6 % (0.0-5.0); NEUTROPHILS # 4.6 10^3/uL (1.5-8.5); NEUTROPHILS % 80.5 % (36.0-66.0); PLATELET COUNT, AUTOMATED 171 10^3/uL (150-450); RED BLOOD COUNT 4.23 10^6/uL (4.00-5.40); WHITE BLOOD COUNT 5.7 10^3/uL (4.0-10.0)
[2019-12-02] MEDS ORDERED: ASPI81TA86 PO (13:17)
[2019-12-02] MEDS ORDERED: ACET-908 PO (13:24)
== END 2019-10-24 11:35 | disposition left against medical advice (07) ==
LOC: M ED 09:30
DX: R10.30 Lower abdominal pain, unspecified (principal); Z85.038 Personal history of other malignant neoplasm of large intestine; K59.00 Constipation, unspecified; R11.0 Nausea; Z79.899 Other long term (current) drug therapy; Z88.0 Allergy status to penicillin; Z79.82 Long term (current) use of aspirin

== ENCOUNTER → 2019-11-14 | Outpatient (REF) | payer MEDICARE ==
[~2019-11-14] MED LIST changes: +ACET-908 PO; +ASPI81TA86 PO
[2019-12-12 12:35] LABS: BASO # 0.1 10^3/uL (0.0-0.2); BILIRUBIN,DIRECT 0.1 MG/DL (0.0-0.2); BILIRUBIN,TOTAL 0.7 MG/DL (0.2-1.0); EOS % 0.8 % (0.0-3.0); FREE T4 1.08 NG/DL (0.76-1.46); HEMATOCRIT 40.4 % (36.0-47.0); HEMOGLOBIN 12.5 g/dl (12.0-15.5); HEMOGLOBIN A1c 5.5 %; LYMPH % 20.8 % (24.0-44.0); MEAN CORPUSCULAR HEMOGLOBIN 29.8 pg (27.0-33.0); MEAN CORPUSCULAR HGB CONC 30.9 g/dl (32.0-36.5); MEAN CORPUSCULAR VOLUME 96.2 fl (80.0-96.0); MONO # 0.4 10^3/uL (0.0-0.8); MONO % 7.9 % (0.0-5.0); NEUTROPHILS # 3.3 10^3/uL (1.5-8.5); NEUTROPHILS % 69.3 % (36.0-66.0); PLATELET COUNT, AUTOMATED 202 10^3/uL (150-450); THYROID STIMULATING HORMONE 1.91 uIU/ML (0.358-3.740); TOTAL PROTEIN 6.8 GM/DL (6.4-8.2); WHITE BLOOD COUNT 4.8 10^3/uL (4.0-10.0)
== END ==
LOC: M SFHCPLAZ 09:41
PROVIDERS: ATTEND Physician Assistant
DX: K76.0 Fatty (change of) liver, not elsewhere classified (principal); R10.12 Left upper quadrant pain; R63.4 Abnormal weight loss
CPT/HCPCS: 36415; 80076; 83036; 84439; 84443; 85025; G0463

== ENCOUNTER → 2019-12-03 | Outpatient (CLI) | payer MEDICARE | LOC: M LABSMTC 09:13 | PROVIDERS: ATTEND Anesthesiology | DX: Z01.812 Encounter for preprocedural laboratory examination (principal); Z20.828 Contact with and (suspected) exposure to other viral communicable diseases | CPT/HCPCS: C9803; U0003 ==

== ENCOUNTER 2019-12-08 08:21 | Day surgery (SDC) | payer MEDICARE ==
[~2019-12-08] VITALS: Ht 154.9 cm; Wt 49.9 kg
[~2019-12-08 08:21] MED LIST changes: +NS 1,000 ML IV ONE
[2019-12-08] MEDS ORDERED: LIDOCAINE 2% MDV 20ML VIAL As Ordered ONE (10:35)
[2019-12-08] MEDS ORDERED: fentaNYL 100 MCG/2 ML INJECTION (J3010) As Ordered ONE (10:35)
[2019-12-08] MEDS ORDERED: propofoL 500 MG/50 ML VIAL As Ordered ONE (10:45)
--- NOTE | 2019-12-08 11:29 | ROOR ---
Patient Name: Yarelis Douglas Procedure Date: 12/08/2019 10:22 AM Date of : 1950 Age: 69 Room: [facility] Gender: Female Note Status: Finalized Procedure: Colonoscopy Indications: High risk colon cancer surveillance: Personal history of colon cancer Providers: Saurav Soliman MD Referring MD: Yumiko Guthrie MD Requesting Provider: Medicines: Monitored Anesthesia Care Complications: No immediate complications. Procedure: Pre-Anesthesia Assessment: - Prior to the procedure, a History and Physical was performed, and patient medications and allergies were reviewed. The patient is competent. The risks and benefits of the procedure and the sedation options and risks were discussed with the patient. All questions were answered and informed consent was obtained. Patient identification and proposed procedure were verified by the physician, the nurse and the anesthesiologist in the procedure room. Mental Status Examination: alert and oriented. Airway Examination: normal oropharyngeal airway and neck mobility. Respiratory Examination: clear to auscultation. CV Examination: normal. Prophylactic Antibiotics: The patient does not require prophylactic antibiotics. Prior Anticoagulants: The patient has taken no previous anticoagulant or antiplatelet agents. ASA Grade Assessment: II - A patient with mild systemic disease. After reviewing the risks and benefits, the patient was deemed in satisfactory condition to undergo the procedure. The anesthesia plan was to use monitored anesthesia care (MAC). Immediately prior to administration of medications, the patient was re-assessed for adequacy to receive sedatives. The heart rate, respiratory rate, oxygen saturations, blood pressure, adequacy of pulmonary ventilation, and response to care were monitored throughout the procedure. The physical status of the patient was re-assessed after the procedure. The Colonoscope was introduced through the anus and advanced to the ileocolonic anastomosis. The colonoscopy was technically difficult and complex due to restricted mobility of the colon and a tortuous colon. Successful completion of the procedure was aided by using manual pressure and withdrawing the scope and replacing with the enteroscope. The patient tolerated the procedure well. The quality of the bowel preparation was adequate to identify polyps 6 mm and larger in size. Scope insertion time was 8 minutes. Scope withdrawal time was 9 minutes. The total duration of the procedure was 16 minutes. Findings: The perianal and digital rectal examinations were normal. The kati-terminal ileum appeared normal. There was evidence of a prior end-to-end ileo-colonic anastomosis in the proximal ascending colon. This was patent and was characterized by healthy appearing mucosa. The anastomosis was traversed. Three sessile polyps were found in the recto-sigmoid colon and transverse colon. The polyps were 3 to 5 mm in size. These polyps were removed with a cold snare. Resection and retrieval were complete. Verification of patient identification for the specimen was done by the physician and nurse using the patient's name, date and medical record number. Estimated blood loss was minimal. Multiple small and large-mouthed diverticula were found from sigmoid to descending colon. There was narrowing of the colon in association with the diverticular opening. There was evidence of diverticular spasm. There was no evidence of diverticular bleeding. Non-bleeding external and internal hemorrhoids were found during retroflexion. The hemorrhoids were medium-sized. Impression: - The examined portion of the ileum was normal. - Patent end-to-end ileo-colonic anastomosis, characterized by healthy appearing mucosa. - Three 3 to 5 mm polyps at the recto-sigmoid colon and in the transverse colon, removed with a cold snare. Resected and retrieved. - Severe diverticulosis from sigmoid to descending colon. There was narrowing of the colon in association with the diverticular opening. There was evidence of diverticular spasm. There was no evidence of diverticular bleeding. - Non-bleeding external and internal hemorrhoids. Recommendation: - Patient has a contact number available for emergencies. The signs and symptoms of potential delayed complications were discussed with the patient. Return to normal activities tomorrow. Written discharge instructions were provided to the patient. - High fiber diet. - Continue present medications. - Use fiber, for example Citrucel, Fibercon, Konsyl or Metamucil. - Await pathology results. - Repeat colonoscopy in 3 years for surveillance based on pathology results. - Telephone GI clinic for pathology results in 2 weeks. - Return to primary care physician. Saurav Soliman MD Saurav Soliman MD 12/08/2019 11:29:15 AM Electronically signed by Saurav Soliman MD Number of Addenda: 0 Note Initiated On: 12/08/2019 10:22 AM Estimated Blood Loss: Estimated blood loss was minimal.
[2019-12-08 11:40] VITALS: BP 143/66
== END 2019-12-08 11:48 | disposition home or self-care (01) ==
LOC: M OPP 08:21
PROVIDERS: ATTEND Internal Medicine Gastroenterology
DX: Z12.11 Encounter for screening for malignant neoplasm of colon (principal); Z85.038 Personal history of other malignant neoplasm of large intestine; K64.8 Other hemorrhoids; Z98.0 Intestinal bypass and anastomosis status; K63.5 Polyp of colon; K57.30 Diverticulosis of large intestine without perforation or abscess without bleeding; Z79.82 Long term (current) use of aspirin; Z79.899 Other long term (current) drug therapy; Z88.0 Allergy status to penicillin; Z88.8 Allergy status to other drugs, medicaments and biological substances; Z91.038 Other insect allergy status; Z86.79 Personal history of other diseases of the circulatory system
CPT/HCPCS: 45385; 88305; J3010

== ENCOUNTER → 2020-05-23 | Outpatient (CLI) | payer MEDICARE ==
[~2020-05-23] MED LIST changes: -NS 1,000 ML IV ONE
[2020-05-23 07:35] LABS: CHOLESTEROL RISK RATIO 2.762 (<5)
== END ==
LOC: M LAB 06:37
PROVIDERS: ATTEND Family Medicine
DX: E78.00 Pure hypercholesterolemia, unspecified (principal); Z13.1 Encounter for screening for diabetes mellitus

== ENCOUNTER → 2020-10-18 | Outpatient (CLI) | payer MEDICARE ==
[~2020-10-18] MED LIST changes: -ACET-908 PO; +ACET-910 PO
--- NOTE | 2020-10-18 08:38 | REPMRS ---
Patient History The patient states she has not had a clinical breast exam in over a year. No known family history of cancer. Patient states no breast complaints today. Patient has signed MRS History Sheet. Digital Woman Screen Mammo: October 18, 2020 - Exam #: [id number] Bilateral CC and MLO view(s) were taken. Technologist: Kirsten Avilez, Technologist Prior study comparison: October 11, 2019, diagnostic bilateral mammo performed at [facility]. October 05, 2018, bilateral digital woman screen mammo performed at [facility]. September 14, 2017, bilateral digital woman screen mammo performed at [facility]. FINDINGS: The breast tissue is heterogeneously dense. This may lower the sensitivity of mammography. The Volpara volumetric breast density category is: C. There is a moderate amount of heterogeneously dense fibroglandular tissue which is fairly symmetric. There is no interval development of dominant mass, architectural distortion, or grouped microcalcification typical of malignancy. There has been no change in the appearance of the mammogram from the prior studies. 3-D tomosynthesis shows no additional findings. Assessment: BI-RADS/ACR category 1 mammogram. Negative Mammogram. Recommendation Routine screening mammogram of both breasts in 1 year (for women over age 40). This patient's [facility] Lifetime Breast Cancer RIsk is estimated at 4.6 %. This mammogram was interpreted with the aid of an FDA-approved computer-aided dectection system. Electronically Signed By: Olvin Crow MD 10/18/20 0837
== END ==
LOC: M WHC 07:51
PROVIDERS: ATTEND Family Medicine
DX: Z12.31 Encounter for screening mammogram for malignant neoplasm of breast (principal)

== ENCOUNTER → 2021-03-04 | Outpatient (REF) | payer MEDICARE | LOC: M SFHCPLAZ 08:57 | PROVIDERS: ATTEND Family Medicine | DX: R11.0 Nausea (principal); R10.13 Epigastric pain; R63.4 Abnormal weight loss ==

== ENCOUNTER → 2021-03-04 | Outpatient (CLI) | payer MEDICARE ==
[2021-03-04 13:13] LABS: HEMATOCRIT 38.5 % (36.0-47.0); HEMOGLOBIN 12.2 g/dl (12.0-15.5); MEAN CORPUSCULAR HEMOGLOBIN 30.7 pg (27.0-33.0); MEAN CORPUSCULAR HGB CONC 31.7 g/dl (32.0-36.5); PLATELET COUNT, AUTOMATED 172 10^3/uL (150-450); RED BLOOD COUNT 3.97 10^6/uL (4.00-5.40); WHITE BLOOD COUNT 4.6 10^3/uL (4.0-10.0)
[2021-03-04 13:56] LABS: ALBUMIN 3.6 GM/DL (3.2-5.2); BILIRUBIN,TOTAL 0.5 MG/DL (0.2-1.0); C REACTIVE PROTEIN QUANTITATIV 0.3 MG/DL (0.00-0.30); CALCIUM LEVEL 9.1 MG/DL (8.8-10.2); CREATININE FOR GFR 1.02 MG/DL (0.55-1.30); FREE T4 1.28 NG/DL (0.76-1.46); POTASSIUM SERUM 4.5 MEQ/L (3.5-5.1); THYROID STIMULATING HORMONE 2.3 uIU/ML (0.358-3.740); TOTAL PROTEIN 6.5 GM/DL (6.4-8.2)
== END ==
LOC: M PLALAB 09:26
PROVIDERS: ATTEND Family Medicine
DX: R11.0 Nausea (principal); R10.13 Epigastric pain; R63.4 Abnormal weight loss

== ENCOUNTER → 2021-03-06 | Outpatient (CLI) | payer MEDICARE ==
[~2021-03-06] MED LIST changes: +GASTROGRAFIN SOLUTION 30ML (Q9963) As Ordered ONE; +ISOVUE-370 76% 100ML VIAL As Ordered ONE
--- NOTE | 2021-03-07 08:33 | REP ---
INDICATION: NAUSEA, EPIGASTRIC PAIN, ABD PAIN. COMPARISON: CT abdomen pelvis with without IV contrast, 03/19/2017. TECHNIQUE: Imaging protocol: Computed tomography of the abdomen and pelvis with IV contrast. Contiguous 3 mm thick axial projection images were obtained through the abdomen and pelvis. 2D sagittal and coronal reconstructions were performed. Radiation optimization: All CT scans at this facility use at least one of these dose optimization techniques: automated exposure control; mA and/or kV adjustment per patient size (includes targeted exams where dose is matched to clinical indication); or iterative reconstruction. Contrast material: ISOVUE 370; Contrast volume: 100 ml; Contrast route: INTRAVENOUS (IV). FINDINGS: Heart and lung bases: There is linear scarring in the posterior basilar segments of both lower lobes. There is a benign calcified granuloma in the lower lobe of the left lung. There are no pleural effusions. The heart size is normal. There is no pericardial effusion. There is calcific vascular disease of the thoracic aorta and coronary arteries. Liver: Normal. Gallbladder: There is a 5 mm gallstone. Spleen: Normal. Pancreas: Normal. Adrenal glands: Normal. Kidneys/bladder: The kidneys enhance and excrete normally. There are bilateral extrarenal renal pelvises. The urinary bladder has a normal unenhanced appearance. Pelvic structures: The uterus is surgically absent. The ovaries are not identified. There is no pelvic or inguinal lymphadenopathy. GI tract: There is a large duodenal diverticulum at the junction of the 2nd and 3rd portions of the duodenum. Status post right hemicolectomy and enterocolic anastomosis. The anastomosis is unremarkable. There is stool in the distal 1/2 of the colon. There is colonic diverticulosis without diverticulitis. Abdominal wall and mesentery: There are no abdominal wall defects. There is no mesenteric or retroperitoneal lymphadenopathy. Abdominal aorta and vascular structures: There is calcific vascular disease of the abdominal aorta. The inferior vena cava and portal venous system are normal. Bony structures: There is degenerative disc disease, L3-4 through L5-S1. The SI joints and hips are normal. IMPRESSION: 1. Cholelithiasis. 2. Status post right hemicolectomy. The enterocolic anastomosis is unremarkable. 3. Mild constipation. 4. Colonic diverticulosis without diverticulitis. 5. Other findings as noted, not significantly changed. <Electronically signed by Jett Iqbal > 03/07/21 [id number]
== END ==
LOC: M RAD 14:11
PROVIDERS: ATTEND Family Medicine
DX: R11.0 Nausea (principal); R10.13 Epigastric pain; R63.4 Abnormal weight loss
CPT/HCPCS: 74177; Q9963; Q9967

== ENCOUNTER → 2021-08-02 | Outpatient (CLI) | payer MEDICARE ==
[~2021-08-02] MED LIST changes: -GASTROGRAFIN SOLUTION 30ML (Q9963) As Ordered ONE; -ISOVUE-370 76% 100ML VIAL As Ordered ONE
== END ==
LOC: M RAD 07:33
PROVIDERS: ATTEND Internal Medicine Gastroenterology
DX: R11.0 Nausea (principal)
CPT/HCPCS: 78227; A9537

== ENCOUNTER → 2021-10-14 | Outpatient (CLI) | payer MEDICARE | LOC: M LABSMTC 10:29 | PROVIDERS: ATTEND Anesthesiology | DX: Z11.52 Encounter for screening for COVID-19 (principal) ==

== ENCOUNTER 2021-10-17 10:08 | Day surgery (SDC) | payer MEDICARE ==
[~2021-10-17] VITALS: Ht 154.9 cm; Wt 49.9 kg
[~2021-10-17 10:08] MED LIST changes: +NS 1,000 ML IV ONE
[2021-10-17] MEDS ORDERED: propofoL 200 MG/20 ML VIAL As Ordered ONE (12:40)
[2021-10-17] MEDS ORDERED: LIDOCAINE 2% 100MG/5ML SDV (FOR ANES.) As Ordered ONE (12:40)
[2021-10-17] MEDS ORDERED: fentaNYL 100 MCG/2 ML INJECTION As Ordered ONE (12:40)
[2021-10-17 13:25] VITALS: BP 168/78
== END 2021-10-17 13:38 | disposition home or self-care (01) ==
LOC: M OPP 10:08
PROVIDERS: ATTEND Internal Medicine Gastroenterology
DX: K29.70 Gastritis, unspecified, without bleeding (principal); K57.10 Diverticulosis of small intestine without perforation or abscess without bleeding; R93.3 Abnormal findings on diagnostic imaging of other parts of digestive tract; E78.00 Pure hypercholesterolemia, unspecified; E55.9 Vitamin D deficiency, unspecified; K76.0 Fatty (change of) liver, not elsewhere classified; Z86.79 Personal history of other diseases of the circulatory system; Z85.038 Personal history of other malignant neoplasm of large intestine; Z79.1 Long term (current) use of non-steroidal anti-inflammatories (NSAID); Z79.02 Long term (current) use of antithrombotics/antiplatelets; Z79.82 Long term (current) use of aspirin; Z79.899 Other long term (current) drug therapy; Z88.0 Allergy status to penicillin; Z88.1 Allergy status to other antibiotic agents
CPT/HCPCS: 43239; 88305; J3010

== ENCOUNTER → 2021-11-12 | Outpatient (CLI) | payer MEDICARE, OTHER ==
[~2021-11-12] MED LIST changes: -NS 1,000 ML IV ONE
== END ==
LOC: M PLALAB 09:13
PROVIDERS: ATTEND Internal Medicine Hematology
DX: R07.81 Pleurodynia (principal)

== ENCOUNTER → 2022-01-31 | Outpatient (CLI) | payer MEDICARE, OTHER | LOC: M WHC 09:25 | PROVIDERS: ATTEND Internal Medicine Hematology | DX: Z12.31 Encounter for screening mammogram for malignant neoplasm of breast (principal); M81.0 Age-related osteoporosis without current pathological fracture ==

== ENCOUNTER → 2022-08-29 | Outpatient (CLI) | payer MEDICARE, OTHER ==
[2022-08-29 10:44] LABS: HEMATOCRIT 40.2 % (36.0-47.0); HEMOGLOBIN 12.3 g/dl (12.0-15.5); MEAN CORPUSCULAR HEMOGLOBIN 29.7 pg (27.0-33.0); MEAN CORPUSCULAR HGB CONC 30.6 g/dl (32.0-36.5); MEAN CORPUSCULAR VOLUME 97.1 fl (80.0-96.0); PLATELET COUNT, AUTOMATED 199 10^3/uL (150-450); RED BLOOD COUNT 4.14 10^6/uL (4.00-5.40); WHITE BLOOD COUNT 4.6 10^3/uL (4.0-10.0)
[2022-08-29 10:57] LABS: HEMOGLOBIN A1c 5.2 % (4.0-6.0)
[2022-08-29 11:25] LABS: CREATININE, URINE 75.4 MG/DL; THYROID STIMULATING HORMONE 2.598 uIU/ML (0.55-4.78); TOTAL 25(OH) VITAMIN D 23.3 NG/ML (20.0-100.0)
[2022-08-29 11:26] LABS: MAU/CREAT RATIO 51.7 MCG/MG (0.0-30.0)
[2022-08-29 11:29] LABS: VITAMIN B12 LEVEL 321 PG/ML (211-911)
[2022-08-29 11:30] LABS: ALKALINE PHOSPHATASE 56 U/L (46-116); ALT/SGPT 18 U/L (7.0-40); AST/SGOT 23 U/L (<34); BILIRUBIN,TOTAL 0.6 MG/DL (0.3-1.2); BLOOD UREA NITROGEN 9 MG/DL (9-23); C REACTIVE PROTEIN QUANTITATIV < 0.40 MG/DL (<1.0); CALCIUM LEVEL 8.6 MG/DL (8.3-10.6); CARBON DIOXIDE LEVEL 28 MMOL/L (20-31); CHLORIDE LEVEL 109 MMOL/L (98-107); CHOLESTEROL LEVEL 169 MG/DL (<200); CHOLESTEROL RISK RATIO 2.52 (<5); CREATININE FOR GFR 0.96 MG/DL (0.55-1.30); FREE T4 1.06 NG/DL (0.89-1.76); GLOMERULAR FILTRATION RATE > 60.0 (>39); GLUCOSE, FASTING 85 MG/DL (74-106); LDL CHOLESTEROL 78.2 MG/DL (<100); POTASSIUM SERUM 4.2 MMOL/L (3.5-5.1); SODIUM LEVEL 141 MMOL/L (136-145); TOTAL PROTEIN 6.6 G/DL (5.7-8.2); TRIGLYCERIDES LEVEL 119 MG/DL (<150)
== END ==
LOC: M PLALAB 07:44
PROVIDERS: ATTEND Internal Medicine Hematology
DX: E78.00 Pure hypercholesterolemia, unspecified (principal); Z79.899 Other long term (current) drug therapy

== ENCOUNTER → 2022-09-02 | Outpatient (CLI) | payer MEDICARE, OTHER ==
[~2022-09-02] MED LIST changes: +GASTROGRAFIN SOLUTION 30ML As Ordered ONE; +ISOVUE-370 76% 100ML VIAL As Ordered ONE
== END ==
LOC: M RAD 12:39
PROVIDERS: ATTEND Internal Medicine Hematology
DX: K80.20 Calculus of gallbladder without cholecystitis without obstruction (principal); C18.9 Malignant neoplasm of colon, unspecified; E78.00 Pure hypercholesterolemia, unspecified; Z79.899 Other long term (current) drug therapy; Z90.49 Acquired absence of other specified parts of digestive tract
CPT/HCPCS: 74177; Q9963; Q9967

== ENCOUNTER → 2023-02-02 | Outpatient (CLI) | payer MEDICARE ==
[~2023-02-02] MED LIST changes: -GASTROGRAFIN SOLUTION 30ML As Ordered ONE; -ISOVUE-370 76% 100ML VIAL As Ordered ONE
== END ==
LOC: M WHC 16:35
PROVIDERS: ATTEND Internal Medicine Hematology
DX: Z12.31 Encounter for screening mammogram for malignant neoplasm of breast (principal)

== ENCOUNTER → 2023-06-05 | Outpatient (CLI) | payer MEDICARE, OTHER ==
[2023-06-05 13:30] LABS: HEMOGLOBIN 12.4 g/dl (12.0-15.5); MEAN CORPUSCULAR HEMOGLOBIN 31.3 pg (27.0-33.0); MEAN CORPUSCULAR HGB CONC 31.8 g/dl (32.0-36.5); MEAN CORPUSCULAR VOLUME 98.5 fl (80.0-96.0); PLATELET COUNT, AUTOMATED 210 10^3/uL (150-450); RED BLOOD COUNT 3.96 10^6/uL (4.00-5.40)
[2023-06-05 13:51] LABS: CREATININE, URINE 65.7 MG/DL
[2023-06-05 13:52] LABS: C REACTIVE PROTEIN QUANTITATIV < 0.40 MG/DL (<1.0); MALB URINE SIEMENS < 3.0 MG/L; MAU/CREAT RATIO 4.5 MCG/MG (0.0-30.0)
[2023-06-05 13:54] LABS: ALBUMIN 3.4 G/DL (3.2-5.2); ALKALINE PHOSPHATASE 44 U/L (46-116); ALT/SGPT 15 U/L (7.0-40); AST/SGOT 21 U/L (<34); BILIRUBIN,TOTAL 0.5 MG/DL (0.3-1.2); BLOOD UREA NITROGEN 10 MG/DL (9-23); CALCIUM LEVEL 8.7 MG/DL (8.3-10.6); CARBON DIOXIDE LEVEL 30 MMOL/L (20-31); CHLORIDE LEVEL 108 MMOL/L (98-107); CHOLESTEROL LEVEL 170 MG/DL (<200); CREATININE FOR GFR 0.94 MG/DL (0.55-1.30); GLOMERULAR FILTRATION RATE > 60.0 (>39); GLUCOSE, FASTING 89 MG/DL (74-106); HDL CHOLESTEROL 60.5 MG/DL (>40); LDL CHOLESTEROL 92.7 MG/DL (<100); NON-HDL-C 109.5 MG/DL; POTASSIUM SERUM 4.6 MMOL/L (3.5-5.1); SODIUM LEVEL 140 MMOL/L (136-145); TOTAL PROTEIN 6.2 G/DL (5.7-8.2); TRIGLYCERIDES LEVEL 84 MG/DL (<150)
[2023-06-05 13:55] LABS: FREE T4 1.04 NG/DL (0.89-1.76); THYROID STIMULATING HORMONE 2.028 uIU/ML (0.55-4.78); TOTAL 25(OH) VITAMIN D 12.6 NG/ML (20.0-100.0)
[2023-06-05 13:56] LABS: VITAMIN B12 LEVEL 246 PG/ML (211-911)
[2023-06-05 13:57] LABS: HEMOGLOBIN A1c 5.4 % (4.0-6.0)
== END ==
LOC: M PLALAB 09:01
PROVIDERS: ATTEND Internal Medicine Hematology
DX: E78.5 Hyperlipidemia, unspecified (principal); Z79.899 Other long term (current) drug therapy

== ENCOUNTER → 2023-06-23 | Outpatient (CLI) | payer MEDICARE | LOC: M EKG 13:40 | PROVIDERS: ATTEND Internal Medicine Cardiovascular Disease | DX: R00.2 Palpitations (principal) ==

== ENCOUNTER → 2023-10-26 | Outpatient (CLI) | payer MEDICARE | LOC: M RAD 07:34 | PROVIDERS: ATTEND Physician Assistant Medical | DX: H57.89 Other specified disorders of eye and adnexa (principal) ==

== ENCOUNTER → 2023-12-14 | Outpatient (CLI) | payer MEDICARE ==
[2023-12-14 12:48] LABS: BASO # 0.1 10^3/uL (0.0-0.2); BASO % 1.4 % (0.0-1.0); EOS # 0.1 10^3/uL (0.0-0.5); EOS % 2.2 % (0.0-3.0); HEMATOCRIT 37.3 % (36.0-47.0); HEMOGLOBIN 11.8 g/dl (12.0-15.5); LYMPH # 0.8 10^3/uL (1.5-5.0); LYMPH % 15.8 % (24.0-44.0); MEAN CORPUSCULAR HEMOGLOBIN 30.7 pg (27.0-33.0); MEAN CORPUSCULAR HGB CONC 31.6 g/dl (32.0-36.5); MEAN CORPUSCULAR VOLUME 97.1 fl (80.0-96.0); MONO # 0.4 10^3/uL (0.0-0.8); MONO % 7.7 % (2.0-8.0); NEUTROPHILS # 3.7 10^3/uL (1.5-8.5); NEUTROPHILS % 72.5 % (36.0-66.0); PLATELET COUNT, AUTOMATED 205 10^3/uL (150-450); RED BLOOD COUNT 3.84 10^6/uL (4.00-5.40); WHITE BLOOD COUNT 5.1 10^3/uL (4.0-10.0)
[2023-12-14 13:13] LABS: C REACTIVE PROTEIN QUANTITATIV < 0.40 MG/DL (<1.0); HEMOGLOBIN A1c 5.2 % (4.0-6.0); MALB URINE SIEMENS < 3.0 MG/L; MAU/CREAT RATIO 8.3 MCG/MG (0.0-30.0)
[2023-12-14 13:15] LABS: ALBUMIN 3.5 G/DL (3.2-5.2); ALKALINE PHOSPHATASE 55 U/L (46-116); ALT/SGPT 13 U/L (7.0-40); AST/SGOT 18 U/L (<34); BILIRUBIN,TOTAL 0.5 MG/DL (0.3-1.2); BLOOD UREA NITROGEN 8 MG/DL (9-23); CALCIUM LEVEL 8.8 MG/DL (8.3-10.6); CARBON DIOXIDE LEVEL 31 MMOL/L (20-31); CHLORIDE LEVEL 107 MMOL/L (98-107); CHOLESTEROL LEVEL 168 MG/DL (<200); CHOLESTEROL RISK RATIO 3.07 (<5); CREATININE FOR GFR 1.02 MG/DL (0.55-1.30); GLOMERULAR FILTRATION RATE 56.7 (>39); GLUCOSE, FASTING 82 MG/DL (74-106); HDL CHOLESTEROL 54.7 MG/DL (>40); LDL CHOLESTEROL 95.3 MG/DL (<100); NON-HDL-C 113.3 MG/DL; POTASSIUM SERUM 4.5 MMOL/L (3.5-5.1); SODIUM LEVEL 140 MMOL/L (136-145); TOTAL 25(OH) VITAMIN D 49.8 NG/ML (20.0-100.0); TOTAL PROTEIN 6.4 G/DL (5.7-8.2); TRIGLYCERIDES LEVEL 90 MG/DL (<150)
[2023-12-14 13:16] LABS: THYROID STIMULATING HORMONE 3.269 uIU/ML (0.55-4.78)
[2023-12-14 13:17] LABS: VITAMIN B12 LEVEL 263 PG/ML (211-911)
== END ==
LOC: M WUC 08:22
PROVIDERS: ATTEND Internal Medicine Hematology
DX: E78.5 Hyperlipidemia, unspecified (principal); Z79.899 Other long term (current) drug therapy

== ENCOUNTER → 2023-12-15 | Outpatient (CLI) | payer MEDICARE ==
[~2023-12-15] MED LIST changes: +GASTROGRAFIN SOLUTION 30ML ONE
== END ==
LOC: M PLAIMG 11:11
PROVIDERS: ATTEND Internal Medicine Hematology
DX: R13.10 Dysphagia, unspecified (principal); N20.0 Calculus of kidney
CPT/HCPCS: 74176; Q9963

== ENCOUNTER → 2024-02-02 | Outpatient (CLI) | payer MEDICARE ==
[~2024-02-02] MED LIST changes: -GASTROGRAFIN SOLUTION 30ML ONE
== END ==
LOC: M WHC 10:15
PROVIDERS: ATTEND Internal Medicine Hematology
DX: Z12.31 Encounter for screening mammogram for malignant neoplasm of breast (principal)

== ENCOUNTER → 2024-03-15 | Outpatient (CLI) | payer MEDICARE | LOC: M PLALAB 10:55 | PROVIDERS: ATTEND Physician Assistant Medical | DX: M51.362 Other intervertebral disc degeneration, lumbar region with discogenic back pain and lower extremity pain (principal); M54.16 Radiculopathy, lumbar region ==

== ENCOUNTER → 2024-06-07 | Outpatient (CLI) | payer MEDICARE ==
[2024-06-07 17:44] LABS: TOTAL 25(OH) VITAMIN D 63.2 NG/ML (20.0-100.0)
[2024-06-07 17:45] LABS: ALBUMIN 3.9 G/DL (3.2-5.2); BILIRUBIN,TOTAL 0.6 MG/DL (0.3-1.2); CALCIUM LEVEL 9.2 MG/DL (8.3-10.6); CHOLESTEROL RISK RATIO 2.62 (<5); CREATININE FOR GFR 1.01 MG/DL (0.55-1.30); GLOMERULAR FILTRATION RATE 57.2 (>39); HDL CHOLESTEROL 63.6 MG/DL (>40); LDL CHOLESTEROL 85.4 MG/DL (<100); NON-HDL-C 103.4 MG/DL; POTASSIUM SERUM 4.3 MMOL/L (3.5-5.1); TOTAL PROTEIN 6.8 G/DL (5.7-8.2)
== END ==
LOC: M PLALAB 12:29
PROVIDERS: ATTEND Family Medicine
DX: M81.0 Age-related osteoporosis without current pathological fracture (principal); E78.5 Hyperlipidemia, unspecified

== ENCOUNTER → 2024-07-24 | Outpatient (REF) | payer MEDICARE | LOC: M SFHCPLAZ 10:26 | PROVIDERS: ATTEND Family Medicine | DX: J02.9 Acute pharyngitis, unspecified (principal) ==

== ENCOUNTER → 2024-08-01 | Outpatient (REF) | payer MEDICARE | LOC: M SFHCPLAZ 17:02 | PROVIDERS: ATTEND Nurse Practitioner Family | DX: J02.9 Acute pharyngitis, unspecified (principal) ==

== ENCOUNTER 2025-01-01 13:26 | Emergency (ER) | payer MEDICARE ==
[~2025-01-01] VITALS: Ht 157.5 cm; Wt 51.6 kg
[~2025-01-01 13:26] MED LIST changes: -ACE65ERTAB PO; +ACET-1593 PO; -IBUP-1022 PO; +IBUP600T42 PO
[2025-01-01] MEDS ORDERED: LOSA50TA5 PO (13:36)
[2025-01-01 13:55] LABS: BASO # 0.1 10^3/uL (0.0-0.2); BASO % 1.0 % (0.0-1.0); EOS # 0.1 10^3/uL (0.0-0.5); EOS % 0.8 % (0.0-3.0); LYMPH # 0.7 10^3/uL (1.5-5.0); LYMPH % 11.6 % (24.0-44.0); MONO # 0.4 10^3/uL (0.0-0.8); MONO % 5.9 % (2.0-8.0); NEUTROPHILS # 5.0 10^3/uL (1.5-8.5); NEUTROPHILS % 80.5 % (36.0-66.0); PLATELET COUNT, AUTOMATED 222 10^3/uL (150-450)
[2025-01-01] MEDS: ASPIRIN 81 MG CHEWABLE TABLET PO ONE (14:07)
[2025-01-01] MEDS: ALPRAZolam 0.5 MG TAB PO ONE (14:07)
[2025-01-01 14:25] LABS: CK-MB VALUE MASS 1.3 NG/ML (<3.6)
[2025-01-01 14:26] LABS: CALCIUM LEVEL 8.9 MG/DL (8.3-10.6); CARBON DIOXIDE LEVEL 26.0 MMOL/L (20-31); CHLORIDE LEVEL 104.0 MMOL/L (98-107); CREATININE FOR GFR 0.96 MG/DL (0.55-1.30); GLOMERULAR FILTRATION RATE 62.5 (>39); POTASSIUM SERUM 4.0 MMOL/L (3.5-5.1); SODIUM LEVEL 137.0 MMOL/L (136-145)
[2025-01-01 14:27] LABS: CPK CREATINE PHOSPHOKINASE 136.0 U/L (34-145); MB/CK RELATIVE INDEX 0.95 (< OR =4)
[2025-01-01 15:17] LABS: CK-MB VALUE MASS < 1.0 NG/ML (<3.6)
[2025-01-01 15:27] LABS: CPK CREATINE PHOSPHOKINASE 118 U/L (34-145)
[2025-01-01 15:30] VITALS: BP 148/77
[2025-01-01 15:45] VITALS: TEMP 96.8; O2SAT 98
== END 2025-01-01 15:54 | disposition home or self-care (01) ==
LOC: M ED 13:26
DX: I10 Essential (primary) hypertension (principal); E78.5 Hyperlipidemia, unspecified; G43.909 Migraine, unspecified, not intractable, without status migrainosus; K21.9 Gastro-esophageal reflux disease without esophagitis; F41.9 Anxiety disorder, unspecified; M19.90 Unspecified osteoarthritis, unspecified site; C18.9 Malignant neoplasm of colon, unspecified; Z87.891 Personal history of nicotine dependence; Z88.0 Allergy status to penicillin; Z88.1 Allergy status to other antibiotic agents; Z91.048 Other nonmedicinal substance allergy status; Z79.1 Long term (current) use of non-steroidal anti-inflammatories (NSAID); Z79.82 Long term (current) use of aspirin; Z79.02 Long term (current) use of antithrombotics/antiplatelets; Z79.899 Other long term (current) drug therapy

== ENCOUNTER 2025-01-11 13:31 | Emergency (ER) | payer MEDICARE ==
[~2025-01-11] VITALS: Ht 157.5 cm; Wt 51.5 kg
[~2025-01-11 13:31] MED LIST changes: +LOSA50TA5 PO
[2025-01-11 13:37] VITALS: TEMP 98.4
[2025-01-11 13:51] LABS: BASO # 0.1 10^3/uL (0.0-0.2); BASO % 1.2 % (0.0-1.0); EOS # 0.1 10^3/uL (0.0-0.5); EOS % 1.0 % (0.0-3.0); LYMPH # 0.8 10^3/uL (1.5-5.0); LYMPH % 16.1 % (24.0-44.0); MONO # 0.4 10^3/uL (0.0-0.8); MONO % 7.0 % (2.0-8.0); NEUTROPHILS # 3.9 10^3/uL (1.5-8.5); NEUTROPHILS % 74.5 % (36.0-66.0); PLATELET COUNT, AUTOMATED 225 10^3/uL (150-450)
[2025-01-11 14:17] LABS: CPK CREATINE PHOSPHOKINASE 94 U/L (34-145)
[2025-01-11 14:34] LABS: ALT/SGPT 11 U/L (7.0-40); AST/SGOT 20 U/L (<34); CALCIUM LEVEL 9.0 MG/DL (8.3-10.6); CARBON DIOXIDE LEVEL 27 MMOL/L (20-31); CHLORIDE LEVEL 103 MMOL/L (98-107); CK-MB VALUE MASS < 1.0 NG/ML (<3.6); CREATININE FOR GFR 1.02 MG/DL (0.55-1.30); GLOMERULAR FILTRATION RATE 57.7 (>39); POTASSIUM SERUM 4.7 MMOL/L (3.5-5.1); SODIUM LEVEL 138 MMOL/L (136-145)
[2025-01-11 14:36] LABS: FREE T4 1.20 NG/DL (0.89-1.76)
[2025-01-11] MEDS: ASPIRIN 81 MG CHEWABLE TABLET PO ONE ×2 (15:22→15:25)
[2025-01-11 15:23] VITALS: BP 141/65
[2025-01-11] MEDS: NITROGLYCERIN 0.4 MG SUBL TABLET SL PRN (15:23)
[2025-01-11 15:33] LABS: CK-MB VALUE MASS < 1.0 NG/ML (<3.6)
[2025-01-11 15:34] LABS: CPK CREATINE PHOSPHOKINASE 84 U/L (34-145)
[2025-01-11] MEDS ORDERED: ISOVUE-370 76% 100 ML VIAL As Ordered ONE (15:38)
[2025-01-11 16:15] VITALS: BP 141/76; O2SAT 97
== END 2025-01-11 16:16 | disposition left against medical advice (07) ==
LOC: M ED 13:31
DX: R07.9 Chest pain, unspecified (principal); K21.9 Gastro-esophageal reflux disease without esophagitis; I10 Essential (primary) hypertension; E78.5 Hyperlipidemia, unspecified; F41.9 Anxiety disorder, unspecified; G43.909 Migraine, unspecified, not intractable, without status migrainosus; Z87.891 Personal history of nicotine dependence; Z88.0 Allergy status to penicillin; Z88.1 Allergy status to other antibiotic agents; Z91.048 Other nonmedicinal substance allergy status; Z79.1 Long term (current) use of non-steroidal anti-inflammatories (NSAID); Z79.82 Long term (current) use of aspirin; Z79.02 Long term (current) use of antithrombotics/antiplatelets; Z79.899 Other long term (current) drug therapy; Z53.9 Procedure and treatment not carried out, unspecified reason